=== PATIENT | female | born 1985 | race Caucasian/White ===

== ENCOUNTER 2016-09-08 15:00 | Outpatient (CLI) | payer MEDICAID ==
[~2016-09-08] VITALS: Ht 160 cm; Wt 69.1 kg
[2016-09-08 15:07] VITALS: Ht 160 cm; Wt 69.1 kg
[2016-09-08] MEDS ORDERED: TERBUTALINE 1 MG/ML INJ SC ONE ×2 (16:00→19:00)
[2016-09-08] MEDS ORDERED: LACTATED RINGER'S 1,000 ML IV SCH (16:00)
--- NOTE | 2016-09-08 16:37 | RADRPT ---
PROCEDURE: Ultrasound OB cervical length CLINICAL INDICATION: Retroplacental myoma. TECHNIQUE: Sonographic evaluation to assess the cervical length was performed. Transabdominal and transvaginal imaging of the gravid uterus was performed. COMPARISON: Ultrasound dated 09/04/2016. FINDINGS: Single live intrauterine with cardiac activity is identified with a heart rate of 12 3 beats per minute. There is a cephalic lie and a fundal, maternal left grade II placenta. The cervi aldo length equals approximately 4.45 cm, within normal limits. Focal heterogeneous echogenicity in t he retroplacental region, consistent with the patient's known retroplacental fibroid, is similar whe n compared the prior examination. 4.45 IMPRESSION: 1. Cervical length equals 4.45 cm. 2. Single viable intrauterine gestation. RPTAT: GG .Dario Dockery MD, MD Date Time Electronically viewed and signed by .Dario Dockery MD, MD on 09/08/2016 16:37 .P/
[2016-09-08 19:29] LABS: ADD SCAN DIFF NO
[2016-09-08 19:30] LABS: BASOPHILS % 0.2 % (0.0-2.0); EOSINOPHILS # 0.1 10^3/ul (0.0-0.5); EOSINOPHILS % 0.7 % (0.0-7.0); HEMATOCRIT 36.1 % (37.0-47.0); HEMOGLOBIN 12.1 g/dl (12.0-16.0); LYMPHOCYTES # 1.9 10^3/ul (0.8-2.9); LYMPHOCYTES % 15.5 % (15.0-51.0); MEAN CORPUSCULAR HGB CONC 33.5 g/dl (32.0-37.0); MEAN CORPUSCULAR VOLUME 89.6 fl (82.0-101.0); MEAN PLATELET VOLUME 11.1 fl (7.4-10.4); MONOCYTE # 0.9 10^3/ul (0.3-0.9); MONOCYTES % 7.1 % (0.0-11.0); NEUTROPHIL # 9.3 10^3/ul (1.6-7.5); NEUTROPHILS % 75.7 % (39.0-77.0); PLATELET COUNT 262 10^3/UL (140-415); RED BLOOD COUNT 4.03 10^6/ul (4.20-5.40); RED CELL DISTRIBUTION WIDTH 13.3 % (11.5-14.5); WHITE BLOOD COUNT 12.3 10^3/ul (4.8-10.8)
[2016-09-08 19:52] LABS: INR 0.84; PROTIME 11.5 Sec (12.2-14.2); PT RATIO 0.9
[2016-09-08 19:53] LABS: PARTIAL THROMBOPLASTIN TIME 26.3 Sec (25.0-35.0)
[2016-09-08] MEDS ORDERED: PRO20 PO (20:04)
== END 2016-09-08 20:19 | disposition home or self-care (01) ==
LOC: OBT 15:00 → L-D 15:00 → OBT 20:19
PROVIDERS: ATTEND Obstetrics & Gynecology
DX: O62.9 Abnormality of forces of labor, unspecified (principal); O34.13 Maternal care for benign tumor of corpus uteri, third trimester; D25.9 Leiomyoma of uterus, unspecified; O34.219 Maternal care for unspecified type scar from previous cesarean delivery; Z3A.36 36 weeks gestation of pregnancy
CPT/HCPCS: 36415; 76817; 85025; 85610; 85730; 86592; 86900; 86901; 96360; 96361; 96372; J3105; J7120; Z7500; G0463

== ENCOUNTER 2016-09-22 11:43 | Inpatient (IN) | payer MEDICAID ==
[~2016-09-22] VITALS: Ht 157.5 cm; Wt 71.8 kg
[~2016-09-22 11:43] MED LIST: PRO20 PO
[2016-09-22 12:19] VITALS: BP 113/63; PULSE 77; RESP 16; Ht 157.5 cm; Wt 71.8 kg
[2016-09-22 12:27] LABS: URINE BLOOD (Dip) POC 1+ (NEGATIVE)
--- NOTE | 2016-09-22 12:52 | RADRPT ---
PROCEDURE: US OB biophysical profile. CLINICAL INDICATION: decreased movements, pain TECHNIQUE: Multiple sonographic images of the pelvis were obtained. The images were reviewed on a PACS workstation. COMPARISON: No prior studies are available for comparison. FINDINGS: There is a single viable intrauterine gestation. Cardiac activity is present with 134 beats per min mariah. There is a vertex presentation. There is a probable 3.8 cm fibroid in the anterior uterus. The placenta is anterior. There is no evidence of placental abruption. There is a slightly decreased amount of amniotic fluid with an JESSEE = 7.2 cm. Biophysical profile: movement 2/2 tone 2/2. breathing 2/2 JESSEE 2/2 Total 12/19 RPTAT: AA . IMPRESSION: Normal biophysical profile. Borderline oligohydramnios. Probable anterior fibroid. . .Juan Antonio Beck MD, Date Time Electronically viewed and signed by .Juan Antonio Beck MD, on 09/22/2016 12:52 .S/
--- NOTE | 2016-09-22 13:04 | NSTRPT ---
NST Information Datetime Report Generated by CPN: 09/22/2016 13:04 Datetime: 09/22/2016 08:53 NST Information EGA: 38.3 Test Number: 12 Time on Monitor: 09/22/2016 10:01 Time off Monitor: 09/22/2016 10:55 NST Duration (Min): 54 Reason for NST: Other Reason for NST Other: Retroplacental Fibroid Test and Monitor Explained: Monitor Explained; Test Explained; Verbalized Understanding Pulse: 67 Resp: 17 SBP: 108 DBP: 63 Test Evaluation NST Interventions: PO Hydration; Food Given; Reposition Patient; Acoustic Stimulation Patient States Movement: Present Contraction Frequency: q2-min, mild FHR Baseline : 130 Variability: Moderate 6-25bpm Accelerations: 15X15 Decelerations: None FHR Category: Category II NST Results: Questionable Provider Notified: Dr Heath notified Comments: To u/s, JESSEE 10.5cm, cephalic 1050-Report to Dr Heath, order received to send to triage. Report to Ailyn WRIGHT, L_D. POC explaine d to pt, states understanding and denies further questions at this time. 1105-Pt to triage. Electronically Signed By E-Signature: with User ID: [id number], Addendum/Amendment: Reactive with multiple contractions, suspicious deceleration x 3. Agree with p alexandro for prolonged monitoring, possible delivery. Datetime: 09/19/2016 10:33 NST Information EGA: 38.0 NST Duration (Min): 52 Datetime: 09/15/2016 13:00 NST Information EGA: 37.3 NST Duration (Min): 25 Datetime: 09/12/2016 14:00 NST Information EGA: 37.0 NST Duration (Min): 51 Datetime: 09/08/2016 13:23 NST Information EGA: 36.3 NST Duration (Min): 38 Datetime: 09/04/2016 13:22 NST Information EGA: 35.6 NST Duration (Min): 34 Datetime: 08/31/2016 10:16 NST Information EGA: 35.2 NST Duration (Min): 25 Datetime: 08/28/2016 08:57 NST Information EGA: 34.6 NST Duration (Min): 41 Datetime: 08/22/2016 13:48 NST Information EGA: 34.0 NST Duration (Min): 29 Datetime: 08/18/2016 08:53 NST Information EGA: 33.3 NST Duration (Min): 25 Datetime: 08/14/2016 09:28 NST Information EGA: 32.6 NST Duration (Min): 39 Datetime: 08/10/2016 16:05 NST Information EGA: 32.2 Datetime: 08/10/2016 14:45 NST Duration (Min): 29
[2016-09-22 13:45] LABS: ADD SCAN DIFF NO
[2016-09-22 13:48] LABS: BASOPHILS % 0.3 % (0.0-2.0); EOSINOPHILS # 0.1 10^3/ul (0.0-0.5); EOSINOPHILS % 0.5 % (0.0-7.0); HEMATOCRIT 36.9 % (37.0-47.0); HEMOGLOBIN 12.4 g/dl (12.0-16.0); LYMPHOCYTES # 1.5 10^3/ul (0.8-2.9); LYMPHOCYTES % 14.9 % (15.0-51.0); MEAN CORPUSCULAR HEMOGLOBIN 29.7 pg (29.0-33.0); MEAN CORPUSCULAR HGB CONC 33.6 g/dl (32.0-37.0); MEAN CORPUSCULAR VOLUME 88.5 fl (82.0-101.0); MEAN PLATELET VOLUME 11.1 fl (7.4-10.4); MONOCYTE # 0.9 10^3/ul (0.3-0.9); MONOCYTES % 8.2 % (0.0-11.0); NEUTROPHIL # 7.8 10^3/ul (1.6-7.5); NEUTROPHILS % 75.3 % (39.0-77.0); PLATELET COUNT 262 10^3/UL (140-415); RED BLOOD COUNT 4.17 10^6/ul (4.20-5.40); RED CELL DISTRIBUTION WIDTH 13.6 % (11.5-14.5); WHITE BLOOD COUNT 10.3 10^3/ul (4.8-10.8)
[2016-09-22 13:56] LABS: ADD UMIC YES; URINE BILIRUBIN (Dip) NEGATIVE (NEGATIVE); URINE BLOOD (Dip) NEGATIVE (NEGATIVE); URINE COLOR LT. YELLOW (YELLOW); URINE GLUCOSE (Dip) NEGATIVE (NEGATIVE); URINE KETONES (Dip) NEGATIVE (NEGATIVE); URINE LEUKOCYTE ESTERASE (Dip) TRACE (NEGATIVE); URINE NITRITE (Dip) NEGATIVE (NEGATIVE); URINE TOTAL PROTEIN (Dip) NEGATIVE (NEGATIVE); URINE UROBILINOGEN (Dip) 0.2 E.U./dL (0.1-1.0)
[2016-09-22] MEDS: LACTATED RINGER'S 1,000 ML IV SCH ×2 (13:58→14:46)
[2016-09-22] MEDS ORDERED: PRENAT PO (13:59)
--- NOTE | 2016-09-22 14:25 | CONS ---
Date/Time of Note Date/Time of Note DATE: 09/22/16 TIME: 14:21 Assessment/Plan Assessment/Plan Additional Assessment/Plan 31 y/o at 38w 3d with contractions -IV hydration -recheck JESSEE -consider recheck cervix -discharge home pending results. Scheduled for repeat on 09/1616. Consultation Date/Type/Reason Admit Date/Time Reason for Consultation Contractions Hx of Present Illness 31 y/o t 38w 3d who presents with contractions. Patient had NST for GDMA2 and was noted to have UCs on tocometer. JESSEE was 7.2. Denies LOF, VB, dysuria. +FM. h/o CS x1. Per HPI. Other systems negative. Past Medical History Medical History: no pertinent history Past Surgical History Past Surgical Hx: no surgical history Social History Denies habits. Smoking Status: Never smoker Exam/Review of Systems Vital Signs Vitals Vital Signs Date Time Temp Pulse Resp B/P Pulse Ox O2 Delivery O2 Flow Rate FiO2 09/22/16 12:19 98.0 77 16 113/63 Room Air Exam Gen: NAD HEENT: NCAT CV: RRR Pulm: CTAB Abd: gravid, NT Back: no CVAT Ext: NT SVE: L/C FHT: reactive [place]: +UCs --> less since NST Results Result Diagram: 09/22/16 1315 Results 24 hrs Laboratory Tests Test 09/22/16 12:20 09/22/16 12:29 09/22/16 13:15 Urine Color LT. YELLOW Urine Clarity CLEAR Urine pH 6.5 Urine Specific [place] <=1.005 L Urine Ketones NEGATIVE Urine Nitrite NEGATIVE Urine Bilirubin NEGATIVE Urine Urobilinogen 0.2 E.U./dL Urine Leukocyte Esterase TRACE H Urine Microscopic RBC Pending Urine Microscopic WBC Pending Urine Hemoglobin NEGATIVE Urine Glucose NEGATIVE Urine Total Protein NEGATIVE Bedside Urine pH (LAB) 6.5 Bedside Urine Protein (LAB) Negative Bedside Urine Glucose (UA) 0.1% H Bedside Urine Ketones (LAB) Negative Bedside Urine Blood 1+ H Bedside Urine Nitrite (LAB) Negative Bedside Urine Leukocyte Esterase (L Negative White Blood Count 10.3 Red Blood Count 4.17 L Hemoglobin 12.4 Hematocrit 36.9 L Mean Corpuscular Volume 88.5 Mean Corpuscular Hemoglobin 29.7 Mean Corpuscular Hemoglobin Concent 33.6 Red Cell Distribution Width 13.6 Platelet Count 262 Mean Platelet Volume 11.1 H Neutrophils % 75.3 Lymphocytes % 14.9 L Monocytes % 8.2 Eosinophils % 0.5 Basophils % 0.3 Nucleated Red Blood Cells % 0.0 Neutrophils # 7.8 H Lymphocytes # 1.5 Monocytes # 0.9 Eosinophils # 0.1 Basophils # 0.0 Nucleated Red Blood Cells # 0.0 Medications Medications Current Medications Lactated Ringer's (Lr) 1,000 ml @ 125 mls/hr Q8H IV Last administered on t 13:58; Admin Dose 125 MLS/HR; Start 09/22/16 at 12:18 RADHA JAIME September 22, 2016 14:25
[2016-09-22 14:40] LABS: BACTERIA,URINE MODERATE
[2016-09-22] MEDS ORDERED: LACTATED RINGER'S 1,000 ML IV SCH (15:57)
[2016-09-22] MEDS ORDERED: METHYLERGONOVINE 0.2 MG INJ IM PRN ×2 (16:00→21:30)
[2016-09-22] MEDS ORDERED: CEFAZOLIN 2 GM/50 ML (PMX) 50 ML IVPB ONE (16:00)
[2016-09-22] MEDS ORDERED: MISOPROSTOL 200 MCG TAB PR PRN ×2 (16:00→21:30)
[2016-09-22] MEDS ORDERED: OXYTOCIN 30 UNITS/LR 500 ML IV SCH (16:00)
[2016-09-22 16:29] LABS: INR 0.9; PROTIME 12.1 Sec (12.2-14.2); PT RATIO 0.9
[2016-09-22 16:30] LABS: PARTIAL THROMBOPLASTIN TIME 28.1 Sec (25.0-35.0)
--- NOTE | 2016-09-22 16:51 | TRIAGE ---
OB Triage Datetime Report Generated by CPN: 09/22/2016 16:50 Datetime: 09/22/2016 16:34 Maternal Assessment Level of Consciousness: Fully Conscious DTR's/Clonus: DTRs 2+ Headache: Denies Blurred Vision: No Nausea/Vomiting: Denies Facial Edema: None Labor Evaluation Frequency: 1-5 Monitor Mode: External Duration (sec)2399: 50-90 Quality: Mild Pattern: Normal: <= 5 Contractions in 10 Minutes Resting Tone [place]: Relaxed Heart Rate FHR Baseline Rate: 120 Monitor Mode: External US FHR Baseline Changes: No Baseline Change Variability: Moderate 6-25 bpm Accelerations: 15X15 Decelerations: None Category: Category I Comments: Clip done and edith cloth Pain Assessment Pain Scale: 6 Pain Presence: Intermittent Pain Type: Cramping Pain Location: Abdomen Pain Goal: 3 Pain Relief Measures: Comfort Measures Membrane Status: Intact Datetime: 09/22/2016 15:46 Stage of : Labor Assessment Type: Admission Assessment Maternal Assessment Level of Consciousness: Fully Conscious DTR's/Clonus: DTRs 2+; No Clonus Headache: Denies Blurred Vision: No Breath Sounds, Left: Clear and Equal Breath Sounds, Right: Clear and Equal Nausea/Vomiting: Denies RUQ Epigastric Pain: Denies Lower Extremities Edema: None Degree: None Upper Extremities Edema: None Degree: None Facial Edema: None Temperature Route: Oral Fall Risk Assessment History of Falling: (0) No Secondary Diagnosis: (0) No Ambulatory Aid: (0) Bedrest/Nurse Assist IV Therapy: (20) Yes (Annotations: LR running) Gait: (0) Normal/Bedrest/Immobile Mental Status: (0) Oriented to Own Ability Fall Score: 20 Fall Risk Score Definition: No Risk: No action required Pain Assessment Pain Scale: 2 Pain Presence: Intermittent Pain Type: Cramping Pain Location: Abdomen Pain Goal: 6 Datetime: 09/22/2016 15:00 Labor Evaluation Frequency: 3-7 Monitor Mode: External Duration (sec)2399: 60-80 Quality: Moderate Pattern: Normal: <= 5 Contractions in 10 Minutes Resting Tone [place]: Relaxed Heart Rate FHR Baseline Rate: 125 Monitor Mode: External US Variability: Moderate 6-25 bpm Accelerations: 15X15 Decelerations: None Datetime: 09/22/2016 14:03 Comments: nst reactive for gestational age Datetime: 09/22/2016 13:54 Labor Evaluation Frequency: 4-7 Monitor Mode: External Quality: Moderate Pattern: Normal: <= 5 Contractions in 10 Minutes Resting Tone [place]: Relaxed Heart Rate FHR Baseline Rate: 130 Monitor Mode: External US Variability: Moderate 6-25 bpm Accelerations: 15X15 Decelerations: None Category: Category I Datetime: 09/22/2016 13:26 Stage of : OB Triage Datetime: 09/22/2016 12:56 Labor Evaluation Frequency: 3-7 Monitor Mode: External Duration (sec)2399: 60-80 Quality: Moderate Pattern: Normal: <= 5 Contractions in 10 Minutes Resting Tone [place]: Relaxed Heart Rate FHR Baseline Rate: 125 Monitor Mode: External US Variability: Moderate 6-25 bpm Accelerations: 15X15 Decelerations: None Category: Category I Datetime: 09/22/2016 12:29 Vaginal Exam Dilatation (cms): 0.0 Effacement (%): 0 Station: -3 Exam By: ogbodu Datetime: 09/22/2016 12:16 Stage of : OB Triage Maternal Assessment Level of Consciousness: Fully Conscious DTR's/Clonus: DTRs 2+; No Clonus Headache: Denies Blurred Vision: No Respiratory Effort: Unlabored; Regular Rhythm; Equal Expansion Breath Sounds, Left: Clear and Equal Breath Sounds, Right: Clear and Equal Nausea/Vomiting: Denies RUQ Epigastric Pain: Denies Lower Extremities Edema: None Degree: None Upper Extremities Edema: None Degree: None Facial Edema: None Temperature Route: Axillary Fall Risk Assessment History of Falling: (0) No Secondary Diagnosis: (0) No Ambulatory Aid: (0) Bedrest/Nurse Assist IV Therapy: (0) No Gait: (0) Normal/Bedrest/Immobile Mental Status: (0) Oriented to Own Ability Fall Score: 0 Fall Risk Score Definition: No Risk: No action required Datetime: 09/22/2016 12:15 Time of Arrival: 09/22/2016 11:38 EGA: 38.3 Arrived By: Ambulatory Arrived From: Other Unit in Hospital Chief Complaint: UC'S FROM NST ; DECREASED MOVEMENT Movement: Present Contractions: Irregular Rupture of Membranes: Denies Vaginal Bleeding: None Vaginal Discharge: Denies Recent Sexual Intercouse: Denies Abdominal Trauma: Not Applicable Patient Complaints: Contractions; Cramping; Back Pain Time Provider Notified: 09/22/2016 13:15 Provider Notified: uaje Initial Plan: SVE, BPP, IV HYDRATION, Datetime: 09/08/2016 19:30 Stage of : OB Triage Maternal Assessment Level of Consciousness: Fully Conscious Headache: Denies Blurred Vision: No Nausea/Vomiting: Denies RUQ Epigastric Pain: Denies Facial Edema: None Labor Evaluation Frequency: 0/hour Monitor Mode: External Pattern: Normal: <= 5 Contractions in 10 Minutes Resting Tone [place]: Relaxed Contraction Comments: patient denies feeling UCs - no UCs noted since the second dose of terb give n Heart Rate FHR Baseline Rate: 135 Monitor Mode: External US FHR Baseline Changes: No Baseline Change Variability: Moderate 6-25 bpm Accelerations: 15X15 Decelerations: None Category: Category I Pain Assessment Pain Scale: 0 Pain Presence: None/Denies Pain Type: N/A Pain Goal: 0 Pain Relief Measures: Comfort Measures Pain Assessment Comments: patient continues to deny pain Membrane Status: Intact Datetime: 09/08/2016 19:04 Stage of : OB Triage Headache: Denies Pain Assessment Pain Scale: 0 Pain Presence: None/Denies Pain Type: N/A Pain Assessment Comments: patient denies pain at this time Datetime: 09/08/2016 19:01 Assessment Type: Triage Maternal Assessment Level of Consciousness: Fully Conscious DTR's/Clonus: DTRs 2+; No Clonus Headache: Denies Blurred Vision: No Respiratory Effort: Unlabored; Regular Rhythm; Equal Expansion Breath Sounds, Left: Clear and Equal Breath Sounds, Right: Clear and Equal Nausea/Vomiting: Denies RUQ Epigastric Pain: Denies Lower Extremities Edema: None Degree: None Upper Extremities Edema: None Degree: None Facial Edema: None Fall Risk Assessment History of Falling: (0) No Secondary Diagnosis: (0) No Ambulatory Aid: (0) Bedrest/Nurse Assist IV Therapy: (0) No Gait: (0) Normal/Bedrest/Immobile Mental Status: (0) Oriented to Own Ability Fall Score: 0 Fall Risk Score Definition: No Risk: No action required Comment: FOR EXTENDED MONITORING OF UCS. Datetime: 09/08/2016 18:48 Labor Evaluation Frequency: 4-9 Monitor Mode: External Duration (sec)2399: 55-70 Quality: Mild Pattern: Normal: <= 5 Contractions in 10 Minutes Resting Tone [place]: Relaxed Heart Rate FHR Baseline Rate: 130 Monitor Mode: External US FHR Baseline Changes: No Baseline Change Variability: Moderate 6-25 bpm Accelerations: 15X15 Decelerations: None Category: Category I Pain Assessment Pain Scale: 3 Pain Presence: Intermittent Pain Type: Cramping Pain Location: Abdomen Datetime: 09/08/2016 18:10 Stage of : OB Triage Labor Evaluation Frequency: 3-6 Monitor Mode: External Duration (sec)2399: 40-55 Quality: Mild Pattern: Normal: <= 5 Contractions in 10 Minutes Resting Tone [place]: Relaxed Heart Rate FHR Baseline Rate: 135 Monitor Mode: External US FHR Baseline Changes: No Baseline Change Variability: Moderate 6-25 bpm Accelerations: 15X15 Decelerations: None Category: Category I Datetime: 09/08/2016 17:30 Labor Evaluation Frequency: 3-6 Monitor Mode: External Duration (sec)2399: 40-55 Quality: Mild Pattern: Normal: <= 5 Contractions in 10 Minutes Resting Tone [place]: Relaxed Contraction Comments: PT SAYS SHE FEELS BETTER Heart Rate FHR Baseline Rate: 135 Monitor Mode: External US FHR Baseline Changes: No Baseline Change Variability: Moderate 6-25 bpm Accelerations: 15X15 Decelerations: None Category: Category I Datetime: 09/08/2016 16:29 Labor Evaluation Frequency: OCCASIONAL Duration (sec)2399: 35-50 Pattern: Normal: <= 5 Contractions in 10 Minutes Resting Tone [place]: Relaxed Heart Rate FHR Baseline Rate: 135 Monitor Mode: External US FHR Baseline Changes: No Baseline Change Variability: Moderate 6-25 bpm Accelerations: 15X15 Decelerations: None Category: Category I Pain Assessment Pain Scale: 3 Datetime: 09/08/2016 16:19 Comments: U/S TECH AT BED SIDE Datetime: 09/08/2016 15:56 Labor Evaluation Frequency: 2-5 Monitor Mode: External Duration (sec)2399: 60-70 Quality: Mild Pattern: Normal: <= 5 Contractions in 10 Minutes Resting Tone [place]: Relaxed Contraction Comments: PT SAYS SHE IS NOT UNCOMFORTABLE WITH THE CONTRACTIONS Heart Rate FHR Baseline Rate: 135 Monitor Mode: External US FHR Baseline Changes: No Baseline Change Variability: Moderate 6-25 bpm Accelerations: 15X15 Decelerations: None Category: Category I Pain Assessment Pain Scale: 4 Datetime: 09/08/2016 15:32 Vaginal Exam Dilatation (cms): 0.0 Effacement (%): 0 Station: -3 Exam By: MJ Datetime: 09/08/2016 15:23 Labor Evaluation Frequency: 2-4 Monitor Mode: External Duration (sec)2399: 60-75 Quality: Mild Pattern: Normal: <= 5 Contractions in 10 Minutes Resting Tone [place]: Relaxed Heart Rate FHR Baseline Rate: 135 Monitor Mode: External US FHR Baseline Changes: No Baseline Change Variability: Moderate 6-25 bpm Accelerations: 15X15 Decelerations: None Category: Category I Pain Assessment Pain Scale: 3 Pain Presence: Intermittent Pain Type: Contraction Datetime: 09/08/2016 15:11 Assessment Type: Triage Maternal Assessment Level of Consciousness: Fully Conscious DTR's/Clonus: DTRs 2+; No Clonus Headache: Denies Blurred Vision: No Respiratory Effort: Unlabored; Regular Rhythm; Equal Expansion Breath Sounds, Left: Clear and Equal Breath Sounds, Right: Clear and Equal Nausea/Vomiting: Denies RUQ Epigastric Pain: Denies Lower Extremities Edema: None Degree: None Upper Extremities Edema: None Degree: None Facial Edema: None Fall Risk Assessment History of Falling: (0) No Secondary Diagnosis: (0) No Ambulatory Aid: (0) Bedrest/Nurse Assist IV Therapy: (0) No Gait: (0) Normal/Bedrest/Immobile Mental Status: (0) Oriented to Own Ability Fall Score: 0 Fall Risk Score Definition: No Risk: No action required Comment: FOR EXTENDED MONITORING OF UCS. Datetime: 09/08/2016 15:09 Time of Arrival: 09/08/2016 15:09 EGA: 36.3 Arrived By: Ambulatory Arrived From: Other Unit in Hospital Chief Complaint: FROM NST CLINIC .C/O UCS Movement: Present Contractions: Irregular Rupture of Membranes: Denies Vaginal Bleeding: None Vaginal Discharge: Denies Recent Sexual Intercouse: Denies Abdominal Trauma: Not Applicable Patient Complaints: Other Time Provider Notified: 09/08/2016 15:09 Provider Notified: STEFANY Initial Plan: ROYCE
[2016-09-22] MEDS ORDERED: EPHEDrine SULFATE 50 MG/5 ML SYG ONE (17:17)
[2016-09-22] MEDS ORDERED: METOCLOPRAMIDE 10 MG INJ ONE (17:17)
[2016-09-22] MEDS ORDERED: OXYTOCIN 30 UNITS/LR 500 ML IV ONE (17:17)
[2016-09-22] MEDS ORDERED: ONDANSETRON 4 MG INJ ONE (17:17)
[2016-09-22] MEDS ORDERED: OXYTOCIN 10 UNIT INJ ONE (17:17)
[2016-09-22] MEDS ORDERED: morphine SULFATE/PF (10 MG/10 ML) INJ ONE (17:17)
--- NOTE | 2016-09-22 17:41 | HP ---
Date/Time of Note Date/Time of Note DATE: 09/22/16 TIME: 17:32 OB - History Hx of Present Free Text/Dictation This is a 31 years old female 2 para 1 EDC October 03, 2006 history of previous admitted to [facility] with contractions 3-5 minute she originally was scheduled for October 03 but due to contractions she came to [facility], being prepared to undergo repeat transverse low cervical section this patient has been under the care of the [facility] and her has been complicated with gestational diabetes which has been taking metformin 500 mg she also has been taking Procardia 20 mg every 6 hours for contractions . Chief Complaint: Labor, uterine contraction Estimated Due Date: October 03, 2016 : 2 Para: 1 Care: Good Care Ultrasounds: Normal mid trimester US Obstetrical Complications: Gestational Diabetes Medical Complications: None Past Family/Social History * Past Medical, Surgical, Family and Obstetric Histories reviewed from chart. Rubella: immune RPR/VDRL: Negative GBS Status: Negative HBsAG: Negative OB Admission Exam Vital Signs Vital Signs Vital Signs Date Time Temp Pulse Resp B/P Pulse Ox O2 Delivery O2 Flow Rate FiO2 09/22/16 12:19 98.0 77 16 113/63 Room Air Physical Exam HEENT: WNL Heart: Rhythm Normal Lungs: Clear, Equal Abdomen: WNL Extremities: Normal Reflexes: Normal Cervical Dilatation: 1cm Station: -1 Membranes: Intact Accelerations: Accelerations Present Varibility: Moderate Contractions on Admission: < 5 Minutes Apart Intensity: Moderate Last 72 hours Lab Results CBC & BMP 09/22/16 13:15 PRIYANK MCCALL MD September 22, 2016 17:40
[2016-09-22] MEDS ORDERED: EPHEDrine SULFATE 50 MG/5 ML SYG IV PRN (19:00)
[2016-09-22] MEDS ORDERED: NALOXONE (0.4 MG/ML) INJ IV PRN (19:00)
[2016-09-22] MEDS ORDERED: morphine 2 MG INJ IV PRN ×2 (19:00)
[2016-09-22] MEDS ORDERED: ONDANSETRON 4 MG INJ IV PRN (19:00)
[2016-09-22] MEDS ORDERED: morphine SULFATE/PF (10 MG/10 ML) INJ SPINAL ONE (19:00)
[2016-09-22] MEDS ORDERED: DIPHENHYDRAMINE 50 MG INJ IV PRN (19:00)
[2016-09-22] MEDS ORDERED: HYDROmorphONE 1 MG/ML SYG IV PRN ×2 (19:00)
--- NOTE | 2016-09-22 19:20 | OPR ---
DATE OF OPERATION: 09/22/2016 PREOPERATIVE DIAGNOSES: 1. Intrauterine at 38 weeks and 3 days. 2. History of previous section, in active labor. POSTOPERATIVE DIAGNOSES: 1. Intrauterine at 38 weeks and 3 days. 2. History of previous section, in active labor. OPERATION PERFORMED: Repeat transverse low cervical section. SURGEON: Priyank Mccall MD. BUILDING MAINTENANCE TECHNICIAN: Dorys Mensah MD. ANESTHESIA: Spinal. ANESTHESIOLOGIST: Dr. Vargas. FINDINGS: Live baby girl, Apgars 9 and 9. Baby weighed 2630 grams. DETAILS OF THE PROCEDURE: Under satisfactory spinal anesthesia, the patient was prepped and draped and placed in supine position, tilted to the left. Pfannenstiel incision was made, carried through the subcutaneous tissue. Bleeders brought under control with electrocautery. Fascia incised to the length of the incision. Rectus muscle divided in midline. Peritoneum exposed, entered through a t ransverse incision. Exploration of abdomen, gravid uterus, normal-appearing tubes and ovaries, extr reny thinned out lower segment of the uterus due to the thickness of 1 to 2 mm. Bladder flap was d eveloped. Transverse incision was made in the lower segment of the uterus. Amniotic sac ruptured. Clear amniotic fluid noted. Live baby girl was delivered from unengaged vertex. Nasal oropharynge al suction was performed. Baby handed to the team for immediate attention. The patient re ceived 20 units of Pitocin. Placenta delivered manually intact. It was meconium stained and sent t o the pathology. Uterine cavity cleaned with wet sponge and drainage established. Uterus closed in 2 layers using Monocryl #1 in continuous fashion. Peritoneal cavity irrigated with warm saline. S ponge, needle and instrument reported to be correct. Abdominal peritoneum closed with 2-0 chromic c atgut continuously. Rectus muscle approximated with few interrupted 2-0 chromic catgut. Fascia esmer sed with #1 PDS in a continuous fashion. Subcutaneous tissue approximated with 2-0 chromic catgut. The skin closed with alexia. Estimated blood loss 600 mL. Urine bag contained 200 mL of clear ur ine. The patient tolerated the procedure well, transferred to recovery room in a good condition. Dictated By: PRIYANK MCCALL MD HF/NTS Conf#: [id number] DID#: [id number]
[2016-09-22] MEDS: KETOROLAC 30 MG INJ IV PRN (20:15)
[2016-09-22 21:30] VITALS: BP 116/65; PULSE 72; RESP 18
[2016-09-22] MEDS ORDERED: OXYCODONE/ACETAMINOPHEN (5/325) TAB PO PRN (21:30)
[2016-09-22] MEDS ORDERED: ACETAMINOPHEN/CODEINE #3 TAB PO PRN ×2 (21:30)
[2016-09-22] MEDS ORDERED: CEFAZOLIN 1 GM/50 ML (PMX) 50 ML IVPB SCH (21:30)
[2016-09-22] MEDS ORDERED: OXYTOCIN 30 UNITS/LR 500 ML IV PRN (21:30)
[2016-09-22] MEDS ORDERED: LANOLIN 7 GM TUBE TOP PRN (21:30)
[2016-09-22] MEDS ORDERED: CARBOPROST 250 MCG INJ IM PRN (21:30)
[2016-09-22 22:00] VITALS: BP 112/65; PULSE 76; RESP 18
[2016-09-22] MEDS: OXYTOCIN 30 UNITS/LR 500 ML IV SCH (22:07)
[2016-09-22 23:00] VITALS: BP 100/58; PULSE 80; RESP 18
[2016-09-23] VITALS (7 sets, daily range): BP systolic 96–110; BP diastolic 51–65; PULSE 60–91; RESP 16–18
[2016-09-23] MEDS: OXYTOCIN 30 UNITS/LR 500 ML IV SCH ×2 (02:50→06:52)
[2016-09-23 07:59] LABS: ADD SCAN DIFF NO; BASOPHILS % 0.1 % (0.0-2.0); EOSINOPHILS % 0.3 % (0.0-7.0); HEMATOCRIT 33.8 % (37.0-47.0); HEMOGLOBIN 11.3 g/dl (12.0-16.0); LYMPHOCYTES # 1.4 10^3/ul (0.8-2.9); LYMPHOCYTES % 9.6 % (15.0-51.0); MEAN CORPUSCULAR HEMOGLOBIN 29.8 pg (29.0-33.0); MEAN CORPUSCULAR HGB CONC 33.4 g/dl (32.0-37.0); MEAN CORPUSCULAR VOLUME 89.2 fl (82.0-101.0); MEAN PLATELET VOLUME 11.2 fl (7.4-10.4); MONOCYTE # 0.9 10^3/ul (0.3-0.9); MONOCYTES % 5.7 % (0.0-11.0); NEUTROPHIL # 12.4 10^3/ul (1.6-7.5); NEUTROPHILS % 83.8 % (39.0-77.0); PLATELET COUNT 214 10^3/UL (140-415); RED BLOOD COUNT 3.79 10^6/ul (4.20-5.40); RED CELL DISTRIBUTION WIDTH 13.8 % (11.5-14.5); WHITE BLOOD COUNT 14.9 10^3/ul (4.8-10.8)
[2016-09-23] MEDS: MULTIVIT/MIN/FOLATE/IRON/PREN TAB PO SCH (10:26)
[2016-09-23] MEDS: SENNA/DOCUSATE NA (8.6MG/50MG) TAB PO SCH ×2 (10:26→21:57)
[2016-09-23] MEDS: NIFEdipine 10 MG CAP PO SCH ×2 (12:00→18:00)
--- NOTE | 2016-09-23 12:55 | PN ---
Date/Time of Note Date/Time of Note DATE: 09/23/16 TIME: 12:54 OB Subjective Subjective Subjective Post day 1 VSs stable afebrile abdomen soft bowel sounds present lochia moderate extremity normal ambulation encouraged Laboratory Tests Test 09/22/16 13:15 09/22/16 16:10 09/23/16 07:05 White Blood Count 10.310^3/ul 14.910^3/ul Red Blood Count 4.1710^6/ul 3.7910^6/ul Hemoglobin 12.4g/dl 11.3g/dl Hematocrit 36.9% 33.8% Mean Corpuscular Volume 88.5fl 89.2fl Mean Corpuscular Hemoglobin 29.7pg 29.8pg Mean Corpuscular Hemoglobin Concent 33.6g/dl 33.4g/dl Red Cell Distribution Width 13.6% 13.8% Platelet Count 92529^3/UL 78032^3/UL Mean Platelet Volume 11.1fl 11.2fl Neutrophils % 75.3% 83.8% Lymphocytes % 14.9% 9.6% Monocytes % 8.2% 5.7% Eosinophils % 0.5% 0.3% Basophils % 0.3% 0.1% Nucleated Red Blood Cells % 0.0/100WBC 0.0/100WBC Neutrophils # 7.810^3/ul 12.410^3/ul Lymphocytes # 1.510^3/ul 1.410^3/ul Monocytes # 0.910^3/ul 0.910^3/ul Eosinophils # 0.110^3/ul 0.010^3/ul Basophils # 0.010^3/ul 0.010^3/ul Nucleated Red Blood Cells # 0.010^3/ul 0.010^3/ul Hepatitis B Surface Antigen NEGATIVE Prothrombin Time 12.1Sec Prothrombin Time Ratio 0.9 INR International Normalized Ratio 0.90 Activated Partial Thromboplast Time 28.1Sec Current Medications Medications (Trade) Dose Ordered Sig/Adelina Route PRN Reason Start Time Stop Time Status Last Admin Dose Admin Lactated Ringer's 1,000 ml @ 125 mls/hr Q8H IV 09/22/16 12:18 09/22/16 21:16 DC 09/22/16 14:46 Cefazolin Sodium/ Dextrose 50 ml @ 100 mls/hr ONCE ONCE IVPB 09/22/16 16:00 09/22/16 16:29 DC Lactated Ringer's 1,000 ml @ 125 mls/hr Q8H IV 09/22/16 15:57 09/22/16 21:16 DC 09/23/16 11:22 Oxytocin/Lactated Ringer's 500 ml @ 125 mls/hr ONCE -MAY REPEAT X1 IV 09/22/16 16:00 09/22/16 21:16 DC 09/22/16 19:03 Methylergonovine Maleate (Methergine) 0.2 mg ONCE PRN IM VAGINAL BLEEDING 09/22/16 16:00 09/22/16 21:16 DC Misoprostol (Cytotec) 1,000 mcg ONCE PRN ME VAGINAL BLEEDING 09/22/16 16:00 09/22/16 21:16 DC Ephedrine Sulfate 50 mg 50 mg STK-MED ONCE .ROUTE 09/22/16 17:17 09/22/16 17:18 DC Oxytocin/Lactated Ringer's 500 ml @ ud STK-MED ONCE IV 09/22/16 17:17 09/22/16 17:18 DC Morphine Sulfate (Duramorph) 10 mg STK-MED ONCE .ROUTE 09/22/16 17:17 09/22/16 17:18 DC Ondansetron HCl (Zofran Inj) 4 mg STK-MED ONCE .ROUTE 09/22/16 17:17 09/22/16 17:18 DC Metoclopramide HCl (Reglan) 10 mg STK-MED ONCE .ROUTE 09/22/16 17:17 09/22/16 17:18 DC Oxytocin (Oxytocin) 10 units STK-MED ONCE .ROUTE 09/22/16 17:17 09/22/16 17:18 DC Naloxone HCl (Narcan) 0.1 mg Q2M PRN IV FOR RESP RATE 8 OR LESS 09/22/16 19:00 09/23/16 18:59 Ketorolac Tromethamine (Toradol) 30 mg Q6H PRN IV PAIN 09/22/16 19:00 09/23/16 18:59 09/22/16 20:15 Morphine Sulfate (morphine) 2 mg Q3H PRN IV PAIN LEVEL 1-5 09/22/16 19:00 09/23/16 18:59 Morphine Sulfate (morphine) 4 mg Q3H PRN IV PAIN LEVEL 6-10 09/22/16 19:00 09/23/16 18:59 Hydromorphone HCl (Dilaudid) 0.2 mg Q3H PRN IV PAIN LEVEL 1-5 09/22/16 19:00 09/23/16 18:59 Hydromorphone HCl (Dilaudid) 0.4 mg Q3H PRN IV PAIN LEVEL 6-10 09/22/16 19:00 09/23/16 18:59 Diphenhydramine HCl (Benadryl) 25 mg Q6H PRN IV ITCHING 09/22/16 19:00 09/23/16 18:59 Ondansetron HCl (Zofran Inj) 4 mg Q6H PRN IV NAUSEA AND/OR VOMITING 09/22/16 19:00 09/23/16 18:59 09/22/16 23:07 Morphine Sulfate (Duramorph) 0.3 mg GIVEN ANESTH ONCE SPINAL 09/22/16 19:00 09/22/16 19:01 DC Ephedrine Sulfate 5 mg [id number] PRN IV BLOOD PRESSURE SUPPORT 09/22/16 19:00 Acetaminophen/ Codeine Phosphate (Tylenol No.3) 1 tab Q4H PRN PO PAIN LEVEL 4-6 09/22/16 21:30 Acetaminophen/ Codeine Phosphate (Tylenol No.3) 2 tab Q4H PRN PO PAIN LEVEL 7-10 09/22/16 21:30 Oxycodone/ Acetaminophen (Percocet (5/ 325)) 1 tab Q4H PRN PO PAIN LEVEL 4-6 09/22/16 21:30 Oxycodone/ Acetaminophen (Percocet (5/ 325)) 2 tab Q4H PRN PO PAIN LEVEL 7-10 09/22/16 21:30 Ibuprofen (Motrin) 600 mg Q6 PO 09/23/16 18:00 Simethicone (Mylicon) 160 mg Q8H PRN PO DISTENSION/GAS/BLOATING 09/22/16 21:30 Senna/Docusate Sodium (Senokot-S) 1 tab BID PO 09/23/16 09:00 09/23/16 10:26 Lanolin (Sim-S-Bpjakn) 1 applic BEDSIDE MEDICATION PRN TOP BEDSIDE FOR JIN TO NIPPLES 09/22/16 21:30 Diphtheria/ Tetanus/Acell Pertussis 0.5 ml 0.5 ml ONCE ONCE IM* 09/25/16 09:00 09/25/16 09:01 Oxytocin/Lactated Ringer's 500 ml @ 0 mls/hr ONCE PRN IV For Hemorrhage Management 09/22/16 21:30 Methylergonovine Maleate (Methergine) 0.2 mg ONCE PRN IM VAGINAL BLEEDING 09/22/16 21:30 Carboprost Tromethamine (Hemabate) 250 mcg ONCE PRN IM VAGINAL BLEEDING 09/22/16 21:30 Misoprostol 1000 mcg 1,000 mcg ONCE PRN ME VAGINAL BLEEDING 09/22/16 21:30 Cefazolin Sodium 50 ml @ 100 mls/hr ONCE IVPB 09/22/16 21:30 09/22/16 21:59 DC 09/22/16 22:10 Oxytocin/Lactated Ringer's 500 ml @ 125 mls/hr Q4H IV 09/22/16 21:10 09/23/16 06:52 Prenat Multivit/ Door/Iron/Folic Ac ( S) 1 tab DAILY PO 09/23/16 09:00 09/23/16 10:26 Nifedipine (Procardia) 20 mg Q6 PO 09/23/16 12:00 PRIYANK MCCALL MD September 23, 2016 12:55
[2016-09-23] MEDS: KETOROLAC 30 MG INJ IV PRN (13:19)
[2016-09-23] MEDS: IBUPROFEN 600 MG TAB PO SCH (18:32)
[2016-09-23] MEDS: OXYCODONE/ACETAMINOPHEN (5/325) TAB PO PRN (21:58)
[2016-09-24] MEDS: IBUPROFEN 600 MG TAB PO SCH ×5 (00:17→23:38)
[2016-09-24 03:59] VITALS: BP 90/50; PULSE 74; RESP 19
[2016-09-24 08:00] VITALS: BP 104/59; PULSE 80; RESP 20
[2016-09-24] MEDS: MULTIVIT/MIN/FOLATE/IRON/PREN TAB PO SCH (08:58)
[2016-09-24] MEDS: SENNA/DOCUSATE NA (8.6MG/50MG) TAB PO SCH ×2 (08:58→21:11)
[2016-09-24] MEDS ORDERED: AMOXICILLIN/CLAV 500 MG TAB PO SCH (09:00)
--- NOTE | 2016-09-24 10:32 | PN ---
Date/Time of Note Date/Time of Note DATE: 09/24/16 TIME: 10:28 OB Subjective Subjective Subjective Day 2 post normal vaginal delivery Abdomen soft uterus firm lochia normal patient had delayed urinating required catheterization 900 cc of urine recommended to measure residual urine after the first urination if residual more 150cc leave the Branch catheter in for 24 hours , urine sent to the lab for UA and culture and sensitivity PRIYANK MCCALL MD September 24, 2016 10:32
[2016-09-24 11:39] LABS: ADD UMIC NO; URINE BILIRUBIN (Dip) NEGATIVE (NEGATIVE); URINE BLOOD (Dip) NEGATIVE (NEGATIVE); URINE COLOR LT. YELLOW (YELLOW); URINE GLUCOSE (Dip) NEGATIVE (NEGATIVE); URINE KETONES (Dip) NEGATIVE (NEGATIVE); URINE LEUKOCYTE ESTERASE (Dip) NEGATIVE (NEGATIVE); URINE NITRITE (Dip) NEGATIVE (NEGATIVE); URINE TOTAL PROTEIN (Dip) NEGATIVE (NEGATIVE); URINE UROBILINOGEN (Dip) 0.2 E.U./dL (0.1-1.0)
[2016-09-24] MEDS: OXYCODONE/ACETAMINOPHEN (5/325) TAB PO PRN ×2 (13:45→23:01)
[2016-09-24 16:00] VITALS: BP 102/64; PULSE 84; RESP 18
[2016-09-24 20:00] VITALS: BP 111/58; PULSE 92; PULSE 98; RESP 18
[2016-09-25 04:15] VITALS: BP 96/65; PULSE 70; RESP 18
[2016-09-25] MEDS: IBUPROFEN 600 MG TAB PO SCH ×3 (06:10→18:19)
[2016-09-25 08:00] VITALS: BP 108/71; PULSE 60; RESP 18
[2016-09-25] MEDS: SENNA/DOCUSATE NA (8.6MG/50MG) TAB PO SCH (08:19)
[2016-09-25] MEDS: MULTIVIT/MIN/FOLATE/IRON/PREN TAB PO SCH (08:19)
[2016-09-25] MEDS: OXYCODONE/ACETAMINOPHEN (5/325) TAB PO PRN (08:20)
[2016-09-25] MEDS ORDERED: DIPHTH/TET/ACEL PERTUSS (ADULT) 0.5 ML VIAL IM* ONE (09:00)
[2016-09-25] MEDS ORDERED: NA PHOSPHATE/BIPHOS 133 ML ENEMA PR ONE (15:00)
--- NOTE | 2016-09-25 16:37 | PD.PPDC ---
[facility] Discharge Instruction Condition Patient Condition: Good Diet Diet: Resume Regular Diet Activity/Restrictions Activity: Normal Activity May Shower Wound/Drain Care Instructions Wound/Drain Care Instructions: Remove Steri Strips in 1 week Follow-up Follow-up with Physician: 4, Day/Days Provider Information: instructions given recommended to make appointment with the clinic in 4 days to discontinue alexia Return to clinic for CASE [facility]OCATE Instructions: Fever greater than 101 Chills Worsening abdominal pain Excessive Vaginal Bleeding More than 2 pads per hour Unable to tolerate diet OB Instructions: Breast Tenderness Depression Blurried Vision Headache Surgical Instructions: Incisional Drainage Incisional Redness PRIYANK MCCALL MD September 25, 2016 16:37
--- NOTE | 2016-09-25 16:43 | DS ---
Date/Time of Note Date/Time of Note DATE: 09/25/16 TIME: 16:38 Discharge Summary Admission/Discharge Info Admit Date/Time September 22, 2016 at 15:45 Discharge Date/Time September 25, 2006 at 1635 Final Diagnosis Post repeat Procedures Repeat Hx of Present Illness Term history of previous C-sections Hospital Course 31 y/o t 38w 3d who presents with contractions. Patient had NST for GDMA2 and was noted to have UCs on tocometer. JESSEE was 7.2. Denies LOF, VB, dysuria. +FM. h/o CS x1. Post hospital course uneventful patient had no problem with bowel movement or urination discharged home with a prescription of analgesics recommended to make appointment to the office in 4 days Home Meds Reported Medications Multivit/Min/Fol Ac/Iron/Pren* ( S*) 1 Tab Tab, 1 TAB PO DAILY, TAB 09/22/16 Nifedipine* (Procardia*) 20 Mg Cap, 20 MG PO Q6, CAP 09/08/16 Follow-up Plan Post instructions given recommended to make appointment to be seen at the clinic in 4 days patient received a prescription of analgesics and metformin 500 mg 1 p.o. at night Primary Care Provider [facility] Pending Labs Laboratory Tests Test 09/25/16 12:23 09/25/16 12:49 09/25/16 13:08 09/25/16 14:44 Bedside Glucose 62mg/dL (70-220) 95mg/dL (70-220) 162mg/dL (70-220) 155mg/dL (70-220) PRIYANK MCCALL MD September 25, 2016 16:43
== END 2016-09-25 18:30 | disposition home or self-care (01) | DRG 765 ==
LOC: OBT 11:43 → L-D 11:44 → OBT 15:45 → L-D 15:45 → PP1 21:45
PROVIDERS: ADMIT Obstetrics & Gynecology; ATTEND Obstetrics & Gynecology
PROC: 10D00Z1 Extraction of Products of Conception, Low, Open Approach (ICD-10-PCS; principal; 2016-09-22 17:45)
DX: O34.211 Maternal care for low transverse scar from previous cesarean delivery (principal); O24.32 Unspecified pre-existing diabetes mellitus in childbirth; E11.9 Type 2 diabetes mellitus without complications; Z3A.38 38 weeks gestation of pregnancy; Z37.0 Single live birth
CPT/HCPCS: 76818; 81001; 81003; 82962; 85025; 85610; 85730; 86592; 86900; 86901; 87086; 87340; 90715; 94760; 96360; 96361; 99464; G0463; J0690; J1885; J2274; J2405; J2590; J2765; J7120

== ENCOUNTER 2016-10-17 17:20 | Emergency (ER) | payer MEDICAID ==
[~2016-10-17] VITALS: Ht 157.5 cm; Wt 63.0 kg
[~2016-10-17 17:20] MED LIST changes: +PRENAT PO; -PRO20 PO
[2016-10-17 17:37] VITALS: Ht 157.5 cm; Wt 63.0 kg
[2016-10-17] MEDS ORDERED: HYDROmorphONE 1 MG/ML SYG IV STA (19:07)
[2016-10-17] MEDS ORDERED: ONDANSETRON 4 MG INJ IV STA (19:07)
[2016-10-17 19:40] LABS: ADD SCAN DIFF NO
[2016-10-17 19:42] LABS: ADD UMIC YES; BASOPHILS % 0.4 % (0.0-2.0); EOSINOPHILS # 0.3 10^3/ul (0.0-0.5); EOSINOPHILS % 3.4 % (0.0-7.0); HEMATOCRIT 41.4 % (37.0-47.0); HEMOGLOBIN 13.6 g/dl (12.0-16.0); LYMPHOCYTES # 1.9 10^3/ul (0.8-2.9); LYMPHOCYTES % 24.4 % (15.0-51.0); MEAN CORPUSCULAR HEMOGLOBIN 29.1 pg (29.0-33.0); MEAN CORPUSCULAR HGB CONC 32.9 g/dl (32.0-37.0); MEAN CORPUSCULAR VOLUME 88.7 fl (82.0-101.0); MEAN PLATELET VOLUME 10.8 fl (7.4-10.4); MONOCYTE # 0.6 10^3/ul (0.3-0.9); MONOCYTES % 7.4 % (0.0-11.0); NEUTROPHIL # 4.9 10^3/ul (1.6-7.5); NEUTROPHILS % 64.1 % (39.0-77.0); PLATELET COUNT 282 10^3/UL (140-415); RED BLOOD COUNT 4.67 10^6/ul (4.20-5.40); RED CELL DISTRIBUTION WIDTH 12.7 % (11.5-14.5); URINE BILIRUBIN (Dip) NEGATIVE (NEGATIVE); URINE BLOOD (Dip) 3+ (NEGATIVE); URINE COLOR LT. YELLOW (YELLOW); URINE GLUCOSE (Dip) NEGATIVE (NEGATIVE); URINE KETONES (Dip) NEGATIVE (NEGATIVE); URINE LEUKOCYTE ESTERASE (Dip) 1+ (NEGATIVE); URINE NITRITE (Dip) NEGATIVE (NEGATIVE); URINE TOTAL PROTEIN (Dip) NEGATIVE (NEGATIVE); URINE UROBILINOGEN (Dip) 0.2 E.U./dL (0.1-1.0); WHITE BLOOD COUNT 7.6 10^3/ul (4.8-10.8)
[2016-10-17 19:51] LABS: BACTERIA,URINE FEW; SQUAMOUS EPITHELIAL CELL,UR FEW; URINE RBCS >200 /HPF (0)
[2016-10-17 20:01] LABS: CALCIUM 9.7 mg/dl (8.4-10.2); CREATININE 0.77 mg/dl (0.44-1.00)
--- NOTE | 2016-10-17 20:06 | RADRPT ---
PROCEDURE: Pelvic ultrasound. CLINICAL INDICATION: Pelvic pain, post section bleeding TECHNIQUE: Morgan scale, color doppler, spectral doppler ultrasound of the pelvis was performed with transabdominal transducers. COMPARISON: Pelvic ultrasound 09/22/2016 FINDINGS: Uterus: Position: Anteverted. 3.8 x 3.1 x 3.3 cm hypovascular structure identified within the posterior aspect of the uterine fund us appears to be an intramural fibroid without definite contact with the endometrium. Normal appearance of the endometrium. Ovaries: Normal appearance the right ovary with intact blood flow. Left ovary is not identified by the hybrid tester. Free fluid: None. Measurements: Endometrium: 0.8 cm Uterus: 9.8 x 5.6 x 7.4 cm Right ovary: 3.4 x 1.9 x 1.8 cm IMPRESSION: Normal appearance of the endometrium without sonographic evidence of retained products of conception . Recommend correlation with quantitative beta HCG trend. Single intramural fibroid of the posterior uterine fundus. RPTAT: AADD .Alvin Mcdonough MD, MD Date Time Electronically viewed and signed by .Alvin Mcdonough MD, on 10/17/2016 20:05 .B/
[2016-10-17] MEDS ORDERED: IOHEXOL 300MG/ML 150 ML BTL ONE (20:42)
[2016-10-17] MEDS ORDERED: SOD CHLORIDE 0.9% 100 ML ONE (20:42)
--- NOTE | 2016-10-17 21:37 | ERD ---
ER Documentation Chief Complaint Date/Time DATE: 10/17/16 TIME: 21:32 Chief Complaint FOUL SMELLING VAGINAL DISCHARGE X2 DAYS, HAD 3 WKS AGO HPI This is a 31-year-old female who had a on 09/22/2016 saw her doctor today in follow-up. The patient says she has been doing well but has had some lochia over the past several weeks after that is starting to have a foul odor. Her doctor sent her here to rule out endometrial-itis. The patient says that she is not having much pain in the abdominal region but does have some off and on suprapubic pain. Pain is described as dull and nonradiating. No nausea vomiting or diarrhea. No fever no dysuria or hematuria ROS All systems reviewed and are negative except as per history of present illness. Medications Home Meds Reported Medications Multivit/Min/Fol Ac/Iron/Pren* ( S*) 1 Tab Tab, 1 TAB PO DAILY, TAB 09/22/16 Allergies Allergies: Coded Allergies: No Known Allergy (Unverified , 09/22/16) PMhx/Soc Medical and Surgical Hx: pt denies Medical Hx, pt denies Surgical Hx History of Surgery: Yes (c section) Anesthesia Reaction: No Hx Neurological Disorder: No Hx Respiratory Disorders: No Hx Cardiac Disorders: No Hx Psychiatric Problems: No Hx Miscellaneous Medical Probl: No Hx Alcohol Use: No Hx Substance Use: No Hx Tobacco Use: No Smoking Status: Never smoker FmHx Family History: No coronary disease Physical Exam Vitals Vital Signs Date Time Temp Pulse Resp B/P Pulse Ox O2 Delivery O2 Flow Rate FiO2 10/17/16 17:37 98.5 90 18 104/74 98 Physical Exam Const: Well-developed, well-nourished Head: Atraumatic, normocephalic Eyes: Normal Conjunctiva, PERRLA, EOMI, normal sclera, no nystagmus ENT: Normal External Ears, Nose and Mouth, moist mucus membranes. Neck: Full range of motion. No meningismus, no lymphadenopathy. Resp: Clear to auscultation bilaterally, no wheezing, rhonchi, rales Cardio: Regular rate and rhythm, no murmurs, S1 S2 present Abd: Soft, some mild diffuse lower pelvic tenderness, non distended. Normal bowel sounds, no guarding or rebound, no pulsitile abdominal masses or bruits Skin: No petechiae or rashes, no ecchymosis , no maculopapular rash Back: No midline or flank tenderness Ext: No cyanosis, or edema, FROM x 4, normal inspection, neurovascularly intact x 4 Neur: Awake and alert, STR 5/5 x 4, sensation intact x 4, no focal findings, cerebellum intact Psych: Normal Mood and Affect Result Diagram: 10/17/16192710/17/161927 Results 24 hrs Laboratory Tests Test 10/17/16 19:28 White Blood Count 7.610^3/ul Red Blood Count 4.6710^6/ul Hemoglobin 13.6g/dl Hematocrit 41.4% Mean Corpuscular Volume 88.7fl Mean Corpuscular Hemoglobin 29.1pg Mean Corpuscular Hemoglobin Concent 32.9g/dl Red Cell Distribution Width 12.7% Platelet Count 19843^3/UL Mean Platelet Volume 10.8fl Neutrophils % 64.1% Lymphocytes % 24.4% Monocytes % 7.4% Eosinophils % 3.4% Basophils % 0.4% Nucleated Red Blood Cells % 0.0/100WBC Neutrophils # 4.910^3/ul Lymphocytes # 1.910^3/ul Monocytes # 0.610^3/ul Eosinophils # 0.310^3/ul Basophils # 0.010^3/ul Nucleated Red Blood Cells # 0.010^3/ul Urine Color LT. YELLOW Urine Clarity CLEAR Urine pH 6.0 Urine Specific Exira 1.020 Urine Ketones NEGATIVE Urine Nitrite NEGATIVE Urine Bilirubin NEGATIVE Urine Urobilinogen 0.2 E.U./dL Urine Leukocyte Esterase 1+ Urine Microscopic RBC >200/HPF Urine Microscopic WBC 5-10/HPF Urine Squamous Epithelial Cells FEW Urine Bacteria FEW Urine Hemoglobin 3+ Urine Glucose NEGATIVE% Urine Total Protein NEGATIVE Sodium Level 143mmol/L Potassium Level 4.0mmol/L Chloride Level 107mmol/L Carbon Dioxide Level 27mmol/L Anion Gap 13 Blood Urea Nitrogen 13mg/dl Creatinine 0.77mg/dl Glucose Level 123mg/dl Calcium Level 9.7mg/dl Beta HCG, Quantitative < 2.4mIU/ml Current Medications Medications (Trade) Dose Ordered Sig/Adelina Route PRN Reason Start Time Stop Time Status Last Admin Dose Admin Hydromorphone HCl (Dilaudid) 0.5 mg ONCE STAT IV 10/17/16 19:07 10/17/16 19:10 DC 10/17/16 19:31 Ondansetron HCl (Zofran Inj) 4 mg ONCE STAT IV 10/17/16 19:07 10/17/16 19:10 DC 10/17/16 19:24 IV Flush 10 ml 10 ml STK-MED ONCE .ROUTE 10/17/16 20:42 10/17/16 20:43 DC 10/17/16 20:46 Sodium Chloride (NS) 100 ml @ ud STK-MED ONCE .ROUTE 10/17/16 20:42 10/17/16 20:43 DC 10/17/16 20:46 Iohexol (Omnipaque 300mg/ ml) 150 ml STK-MED ONCE .ROUTE 10/17/16 20:42 10/17/16 20:43 DC 10/17/16 20:46 Procedures/MDM PROCEDURE: Pelvic ultrasound. CLINICAL INDICATION: Pelvic pain, post section bleeding TECHNIQUE: Morgan scale, color doppler, spectral doppler ultrasound of the pelvis was performed with transabdominal transducers. COMPARISON: Pelvic ultrasound 09/22/2016 FINDINGS: Uterus: Position: Anteverted. 3.8 x 3.1 x 3.3 cm hypovascular structure identified within the posterior aspect of the uterine fundus appears to be an intramural fibroid without definite contact with the endometrium. Normal appearance of the endometrium. Ovaries: Normal appearance the right ovary with intact blood flow. Left ovary is not identified by the otolaryngology surgeon. Free fluid: None. Measurements: Endometrium: 0.8 cm Uterus: 9.8 x 5.6 x 7.4 cm Right ovary: 3.4 x 1.9 x 1.8 cm IMPRESSION: Normal appearance of the endometrium without sonographic evidence of retained products of conception. Recommend correlation with quantitative beta HCG trend. Single intramural fibroid of the posterior uterine fundus. RPTAT: AADD .Alvin Mcdonough MD, Date Time Electronically viewed and signed by .Alvin Mcdonough MD, on 10/17/2016 20:05 .B/ CC: RAFAELATERRENCECHINMAYGLORIA Mendez DO No signs of endometriosis on sonogram Discussed the CT scan of the abdomen and pelvis with radiologist. He states that there is no intra-acute abdominal process. There is some diastases, there is some stranding of the subcutaneous fat but no phlegmon or abscess consistent with postoperative changes there is a pulmonary nodule. PROCEDURE: CT scan of the abdomen and pelvis with IV contrast. CLINICAL INDICATION: Lower abdominal pain with history of recent shawna TECHNIQUE: Thin section axial, coronal and sagittal images were performed through the abdomen and pelvis following uncomplicated intravenous administration of ccs of contrast. Radiation Dose: CTDI: 9.94 and DLP: 496 One or more of the following dose reduction techniques were used: - Automated exposure control. - Adjustment of the mA and/or kV according to patient size. Use of iterative reconstruction technique. COMPARISON: Pelvic OB sonogram 08/31/2016. FINDINGS: Soft tissues: Pelvic not of the sonogram 10/17/2016. There is subcutaneous stranding along the anterior mid pelvic wall with skin thickening. Lungs and pleural spaces: A 8 mm pulmonary nodule was surrounding granular and spiculated densities was identified in the medial aspect of the right lower lobe. Follow-up imaging is recommended in 6-12 months along with TB skin testing. This is likely a granuloma. Heart: Normal. No pericardial effusion is identified. The liver, common bile duct and gallbladder: The liver is normal. Hepatic and portal veins are patent. The gallbladder and gallbladder wall are normal. Gastrointestinal: The stomach is unremarkable. The small bowel loops have a normal caliber. There is diastasis rectus with some omental fat and a portion of the transverse colon bulging between the rectus abdominous muscles at this level parallel to the umbilicus. Pancreas: Normal. The extrahepatic common bile duct is normal. Kidneys, bladder and adrenal glands : The adrenal glands are normal. The kidneys are normal. The urinary bladder is unremarkable. Spleen: Normal. Lymph nodes: Normal. Reproductive system and pelvis : There is fluid in the endometrial cavity. Along the left side of the endometrial cavity and left side of the fundus of the uterus is a rounded mass measuring 2.5 x 2.9 by 3 cm. A leiomyoma is most likely. This is also described on prior pelvic sonogram from 08/31/2016. There is a subserosal leiomyoma measuring 1.1 cm in size along the dorsal left side of the upper fundus. No abnormal adnexal mass is identified. Some inflammatory changes are noted along the area of the left adnexa. Bony elements: Normal. Vasculature: IMPRESSION: 1. There is an eccentric mass of low attenuation abutting the left side of the endometrial cavity measuring up to 0.9 x 2.5 x 3 cm. This is likely the result of a leiomyoma which is unchanged compared to the prior pelvic sonogram dated . 2. There is an additional subserosal 1.1 cm fibroid along the dorsal left side of the upper fundus of the uterus. 3. Diastasis rectus with omental fat and a portion of the colon extending into the umbilical area of between the rectus abdominous muscles. 4. 8 mm pulmonary nodule abutting the pleural surface in the medial aspect of the right lower lobe. This is likely a granuloma. Recommend follow up according to Fleischner protocol. 5. Subcutaneous stranding and skin thickening is noted in the midline of the pelvis which is likely related to a scar and postsurgical change. There is 6 findings were phoned to Dr. Vega. RPTAT:AAJJ Physician Twila Date Time Electronically viewed and signed by Jethro Faria Physician on 10/17/2016 21:47 JM/ CC: ZAY VEGA DO There is no sign of infection white blood count is normal. The patient has some foul-smelling lochia which could be normal at this time. She has no fever no abscess no retained products of conception. Will discharge home with Keflex to cover her UTI Departure Diagnosis: Primary Impression: Pelvic pain Additional Impression: Normal lochia Condition: Stable ZAY VEGA DO Oct 17, 2016 21:37
--- NOTE | 2016-10-17 21:47 | RADRPT ---
PROCEDURE: CT scan of the abdomen and pelvis with IV contrast. CLINICAL INDICATION: Lower abdominal pain with history of recent shawna TECHNIQUE: Thin section axial, coronal and sagittal images were performed through the abdomen and pelvis following uncomplicated intravenous administration of ccs of contrast. Radiation Dose: CTDI: 9.94 and DLP: 496 One or more of the following dose reduction techniques were used: - Automated exposure control. - Adjustment of the mA and/or kV according to patient size. Use of iterative reconstruction technique. COMPARISON: Pelvic OB sonogram 08/31/2016. FINDINGS: Soft tissues: Pelvic not of the sonogram 10/17/2016. There is subcutaneous stranding along the anter ior mid pelvic wall with skin thickening. Lungs and pleural spaces: A 8 mm pulmonary nodule was surrounding granular and spiculated densities was identified in the medial aspect of the right lower lobe. Follow-up imaging is recommended in 6-1 2 months along with TB skin testing. This is likely a granuloma. Heart: Normal. No pericardial effusion is identified. The liver, common bile duct and gallbladder: The liver is normal. Hepatic and portal veins are upton nt. The gallbladder and gallbladder wall are normal. Gastrointestinal: The stomach is unremarkable. The small bowel loops have a normal caliber. There is diastasis rectus with some omental fat and a portion of the transverse colon bulging between the rectus abdominous muscles at this level parallel to the umbilicus. Pancreas: Normal. The extrahepatic common bile duct is normal. Kidneys, bladder and adrenal glands : The adrenal glands are normal. The kidneys are normal. The u rinary bladder is unremarkable. Spleen: Normal. Lymph nodes: Normal. Reproductive system and pelvis : There is fluid in the endometrial cavity. Along the left side of t he endometrial cavity and left side of the fundus of the uterus is a rounded mass measuring 2.5 x 2. 9 by 3 cm. A leiomyoma is most likely. This is also described on prior pelvic sonogram from 08/31. There is a subserosal leiomyoma measuring 1.1 cm in size along the dorsal left side of the up per fundus. No abnormal adnexal mass is identified. Some inflammatory changes are noted along the area of the left adnexa. Bony elements: Normal. Vasculature: IMPRESSION: 1. There is an eccentric mass of low attenuation abutting the left side of the endometrial cavity me asuring up to 0.9 x 2.5 x 3 cm. This is likely the result of a leiomyoma which is unchanged compare d to the prior pelvic sonogram dated 08/31/2016. 2. There is an additional subserosal 1.1 cm fibroid along the dorsal left side of the upper fundus of the uterus. 3. Diastasis rectus with omental fat and a portion of the colon extending into the umbilical area o f between the rectus abdominous muscles. 4. 8 mm pulmonary nodule abutting the pleural surface in the medial aspect of the right lower lobe. This is likely a granuloma. Recommend follow up according to Fleischner protocol. 5. Subcutaneous stranding and skin thickening is noted in the midline of the pelvis which is likely related to a scar and postsurgical change. There is 6 findings were phoned to Dr. Thomas. RPTAT:AAJJ Physician Twila Date Time Electronically viewed and signed by Physician Twila on 10/17/2016 21:47 MARION/
[2016-10-17] MEDS ORDERED: CEPH-443 PO (22:01)
[2016-10-17 22:36] VITALS: BP 110/72; PULSE 82; RESP 18; TEMP 98.5
== END 2016-10-17 22:39 | disposition home or self-care (01) ==
LOC: FTE 17:20
DX: R10.2 Pelvic and perineal pain (principal)
CPT/HCPCS: 36415; 74177; 76830; 76856; 80048; 81001; 84702; 85025; 96374; 96375; J1170; J2405; Q9967; Z7502; Z7610